=== PATIENT | female | born 1945 | race Caucasian/White ===

== ENCOUNTER 2017-03-16 05:59 | Observation (INO) | payer MEDICARE, OTHER ==
--- NOTE | 2017-03-16 06:14 | ED Physician Documentation ---
History of Present Illness - Stated complaint Stated Complaint: DIZZY - Chief complaint Chief Complaint: Neuro - Additonal information Additional information: hx from pt 72 y/o female approx 1 hr ago (5AM) got up to go to the bathroom and had immense pressure in her head, felt weak all over and off balance but not vertiginous, had burning in her chest and numbness in her left jaw could scarcely walk into the lobby upon arrival and had to be put in a wheelchair no numbness no vision or hearing changes no fever cough NVD today but 5 days ago had milder head pressure and dizziness and diarrhea, that resolved and she was better if not quite her normal self for the intervening days Review of Systems Constitutional: denies: Fever, Chills Throat: denies: Sore throat Cardiac: reports: Chest pain / pressure (burning) Respiratory: denies: Dyspnea GI: denies: Abdominal Pain, Nausea, Vomiting, Diarrhea : denies: Dysuria Neurologic: reports: Generalized weakness, Headache. denies: Focal weakness, Numbness, Difficulty speaking, Altered mental status, Head injury Endocrine: denies: Easy bruising / bleeding Immunocompromised: denies: Immunocompromised PD PAST MEDICAL HISTORY - Past Medical History Cardiovascular: High cholesterol, Angina Neuro: Head injury GI: GERD - Past Surgical History Past Surgical History: Yes General: Cholecystectomy, Appendectomy, Hiatal hernia repair /OVERNIGHT ASSOCIATE: Hysterectomy - Present Medications Home Medications: Ambulatory Orders Medication Instructions Recorded Confirmed Aspirin [Aspir 81] 81 mg PO DAILY 03/08/13 03/16/17 Metoprolol Succinate [Toprol Xl] 50 mg PO BID 03/08/13 03/16/17 Losartan [Cozaar] 50 mg PO DAILY 03/16/17 03/16/17 Losartan [Cozaar] 100 mg PO DAILY PM 03/16/17 03/16/17 raNITIdine [Zantac] 150 mg PO BID 03/16/17 03/16/17 - Allergies Allergies/Adverse Reactions: Allergies Allergy/AdvReac Type Severity Reaction Status Date / Time No Known Drug Allergies Allergy Verified 03/16/17 06:38 - Social History Does the pt smoke?: No Smoking Status: Never smoker Does the pt drink ETOH?: Yes PD ED PE NORMAL - Vitals Vital signs reviewed: Yes - General General: Alert and oriented X 3 - HEENT HEENT: PERRL, EOMI - Neck Neck: Supple, no meningeal sign - Cardiac Cardiac: RRR - Respiratory Respiratory: No respiratory distress, Clear bilaterally - Abdomen Abdomen: Soft, Non tender - Derm Derm: Normal color - Extremities Extremities: No deformity - Neuro Neuro: Alert and oriented X 3, methods study analyst 2-12 intact, No motor deficit, No sensory deficit, Normal speech, Other (NIHSS zero but per triage nurse had an unsteady gait) Results - Vitals Vitals: Vital Signs - 24 hr 03/16/17 03/16/17 03/16/17 06:04 06:16 06:29 Temperature 36.3 C L 36.6 C Heart Rate 79 78 Respiratory 16 16 Rate Blood Pressure 197/98 H 202/108 H Blood Pressure 202/98 H [Right] O2 Saturation 98 97 03/16/17 07:42 Temperature Heart Rate 67 Respiratory 20 Rate Blood Pressure 197/92 H Blood Pressure [Right] O2 Saturation 98 Oxygen O2 Source Room air - EKG (time done) 0630 Rate: Rate (enter#) (79) Rhythm: NSR [place]: Normal Intervals: Normal ND, RBBB Compare to prior EKG: Unchanged from prior EKG (from 2012) - Labs Labs: Laboratory Tests 03/16/17 03/16/17 03/16/17 06:20 06:20 06:20 WBC 6.9 RBC 5.52 H Hgb 16.4 H Hct 47.2 H MCV 85.6 MCH 29.7 MCHC 34.8 RDW 12.7 Plt Count 222 MPV 8.0 Neut # 4.0 Lymph # 1.9 [place] # 0.4 Eos # 0.5 Baso # 0.1 Absolute Nucleated RBC 0.00 Nucleated RBCs 0.0 Sodium 139 Potassium 3.9 Chloride 106 Carbon Dioxide 23 Anion Gap 10.0 BUN 19 Creatinine 1.0 Estimated GFR (MDRD) 54 L Glucose 112 H Calcium 10.1 Troponin I < 0.04 Urine Color Urine Clarity Urine pH Ur Specific [place] Urine Protein Urine Glucose (UA) Urine Ketones Urine Occult Blood Urine Nitrite Urine Bilirubin Urine Urobilinogen Ur Leukocyte Esterase Ur Microscopic Review Urine Culture Comments 03/16/17 07:30 WBC RBC Hgb Hct MCV MCH MCHC RDW Plt Count MPV Neut # Lymph # [place] # Eos # Baso # Absolute Nucleated RBC Nucleated RBCs Sodium Potassium Chloride Carbon Dioxide Anion Gap BUN Creatinine Estimated GFR (MDRD) Glucose Calcium Troponin I Urine Color YELLOW Urine Clarity CLEAR Urine pH 6.0 Ur Specific [place] 1.010 Urine Protein NEGATIVE Urine Glucose (UA) NEGATIVE Urine Ketones NEGATIVE Urine Occult Blood NEGATIVE Urine Nitrite NEGATIVE Urine Bilirubin NEGATIVE Urine Urobilinogen 0.2 (NORMAL) Ur Leukocyte Esterase NEGATIVE Ur Microscopic Review NOT INDICATED Urine Culture Comments NOT INDICATED - Rads (name of study) CTH Radiology: See rad report (generaliuzed age related atropht, no acute) CXR Radiology: See rad report (no acute) PD MEDICAL DECISION MAKING - ED course ED course: head pressure more than pain, was intense but subsided as BP came down ataxia was present when pt awoke at 5 AM today, she had some milder sx several days ago, improved for a few days, then severe when she awoke this AM to go to the bathroom also pt sx are improving somewhat in the ER so do not feel pt is a TPA candidate CTH neg for bleed MRI would be much better for evaluating posterior will admit for further work up and management such as MRI MRA echo etc also had chest pain and jaw numbness - EKG unchanged, trop # 1 neg, discomfort has subsided d/w hospitalist at [address] in obs Departure - Departure Disposition: ED Place in Observation Clinical Impression: Ataxia Headache Qualifiers: Headache type: unspecified Headache chronicity pattern: acute headache Intractability: not intractable Qualified Code(s): R51 - Headache Chest pain Qualifiers: Chest pain type: unspecified Qualified Code(s): R07.9 - Chest pain, unspecified Hypertension Qualifiers: Hypertension type: unspecified Qualified Code(s): I10 - Essential (primary) hypertension
[2017-03-16 06:30] LABS: BASOPHILS # (AUTO) 0.1 10^3/uL (0.0-0.1); BASOPHILS % (AUTO) 0.8 %; EOSINOPHILS # (AUTO) 0.5 10^3/uL (0.0-0.7); HCT - HEMATOCRIT 47.2 % (37.0-47.0); HGB - HEMOGLOBIN 16.4 g/dL (12.0-16.0); LYMPHOCYTES # (AUTO) 1.9 10^3/uL (1.5-3.5); LYMPHOCYTES % (AUTO) 27.3 %; MEAN CORPUSCULAR HEMOGLOBIN 29.7 pg (27.0-31.0); MEAN CORPUSCULAR HGB CONC 34.8 g/dL (32.0-36.0); MEAN CORPUSCULAR VOLUME 85.6 fL (81.0-99.0); MONOCYTES # (AUTO) 0.4 10^3/uL (0.0-1.0); MONOCYTES % (AUTO) 6.2 %; NEUTROPHILS % (AUTO) 57.7 %; RED BLOOD COUNT 5.52 10^6/uL (4.20-5.40); RED CELL DISTRIBUTION WIDTH 12.7 % (12.0-15.0); UNCORRECTED WHITE BLOOD COUNT 6.9 x10^3/uL; WHITE BLOOD COUNT 6.9 x10^3/uL (4.8-10.8)
[2017-03-16 06:40] LABS: CALCIUM 10.1 mg/dL (8.5-10.3); POTASSIUM 3.9 mmol/L (3.5-5.0)
--- NOTE | 2017-03-16 07:00 | XRAY Preliminary Report ---
Exam: XR Chest 1 View IMPRESSION: 1. No acute abnormalities seen in the chest. [facility] SITE ID: [id number]
--- NOTE | 2017-03-16 07:03 | XRAY Report ---
EXAM: CHEST RADIOGRAPHY EXAM DATE: 03/16/2017 06:22 AM. CLINICAL HISTORY: Chest pain. COMPARISON: None. TECHNIQUE: 1 view. FINDINGS: Lungs/Pleura: No alveolar consolidation or pleural effusion seen. No pneumothorax. Mediastinum: Within exam limitations, cardiomediastinal contour is normal. Other: None. IMPRESSION: 1. No acute abnormalities seen in the chest. [facility] Referring Provider Line: [phone] SITE ID: [id number]
--- NOTE | 2017-03-16 07:07 | CT Preliminary Report ---
Exam: CT Head W/O IMPRESSION: Generalized age-related cortical atrophic changes without evidence of acute intracranial abnormality. [facility] SITE ID: [id number]
--- NOTE | 2017-03-16 07:09 | CT Report ---
EXAM: CT HEAD EXAM DATE: 03/16/2017 06:55 AM. CLINICAL HISTORY: Head pressure ataxia. COMPARISON: None. TECHNIQUE: Multiaxial CT images were obtained from the foramen magnum to the vertex. IV contrast: Non e. Reformats: Coronal. In accordance with CT protocol optimization, one or more of the following dose reduction techniques w ere utilized for this exam: automated exposure control, adjustment of mA and/or KV based on patient s ize, or use of iterative reconstructive technique. FINDINGS: Parenchyma: No intraparenchymal hemorrhage. No evidence of mass, midline shift, or CT findings of acu te infarction. Estevez-white differentiation is distinct. Extraaxial Spaces: Normal for age. No subdural or epidural collections identified. Ventricles: The ventricles and cortical sulci are enlarged, consistent with age-related tissue loss. Sinuses: Imaged paranasal sinuses, orbits, and mastoids show no significant abnormality. Bones: No evidence of fracture or calvarial defect. Other: Diffuse chronic microangiopathic white matter changes are evident. IMPRESSION: Generalized age-related cortical atrophic changes without evidence of acute intracranial abnormality. [facility] Referring Provider Line: [phone] SITE ID: [id number]
[2017-03-16] MEDS ORDERED: METOPROLOL SUCCINATE 50 MG TABLET PO STA (07:14)
[2017-03-16] MEDS ORDERED: MECLIZINE 12.5 MG TABLET PO STA (07:23)
[2017-03-16] MEDS ORDERED: ACETAMINOPHEN 1,000 MG/100 ML 100 ML IV STA (07:30)
[2017-03-16] MEDS ORDERED: MECLIZINE 12.5 MG TABLET PO ONE (07:42)
[2017-03-16] MEDS ORDERED: ACETAMINOPHEN 1,000 MG/100 ML 100 ML IV ONE (07:42)
[2017-03-16 07:45] LABS: BILIRUBIN,URINE NEGATIVE (NEGATIVE)
[2017-03-16] MEDS ORDERED: ONDANSETRON ODT 4 MG TABLET TL PRN (08:02)
[2017-03-16] MEDS ORDERED: SODIUM CHLORIDE FLUSH 0.9% 10 ML SYRINGE IVP PRN (08:02)
[2017-03-16] MEDS ORDERED: ACETAMINOPHEN 325 MG TABLET PO PRN (08:02)
[2017-03-16 08:03] LABS: UA CHARGE (STRIP ONLY) YES; UR CULTURE IF IND NOT INDICATED
[2017-03-16] MEDS ORDERED: LOSARTAN 50 MG TABLET PO SCH ×2 (09:00→21:00)
[2017-03-16] MEDS ORDERED: PATIENT OWN MED PO SCH (09:00)
[2017-03-16] MEDS ORDERED: ASPIRIN CHEW 81 MG TABLET PO SCH (09:00)
[2017-03-16] MEDS: POLYETHYLENE GLYCOL 3350 17 GM PACKET PO SCH (11:03)
[2017-03-16] MEDS: MULTIVITAMIN TABLET PO SCH (11:03)
[2017-03-16] MEDS: ENOXAPARIN 40 MG/0.4 ML SYRINGE SUBQ SCH (11:03)
[2017-03-16] MEDS: SODIUM CHLORIDE 0.9% 1,000 ML IV SCH ×2 (11:04→23:45)
--- NOTE | 2017-03-16 12:11 | HISTORY & PHYSICAL EXAMINATION ---
Chief Complaint - Chief Complaint Chief Complaint: dizziness and hypertension History of Present Illness - Admitted From Admitted From:: ER - History Obtained From Records Reviewed: yes History obtained from: patient and medical records Exam Limitations: none - History of Present Illness HPI Comment/Other: Patient is a 72 year old female who presented to the ER with complaint of dizziness this morning while in the bathroom. She was sick last week with what she describes as "flu like symptoms" and had a headache that started this morning. She describes the headache as " a heavy brick" on the top of her head . She states she lost her balance this morning and decided to come to the ER to be evaluated. She denies chest pain or shortness of breath. No nausea or vomiting. She did have some jaw numbness but this has resolved. She was hypertensive when she came into the ER but she states this has been chronic for awhile and her travel journalist in [place] has been trying to get it down. She states she also had a friend who was sick last week and may have gotten ill from her. She has no pain. No diarrhea or constipation. She admits to having dizziness for almost a week but getting worse this morning. She has a history of cardiac problems including a alcohol ablation for hypertrophic cardiomyopathy. ER provider was concerned for a possible CVA so patient was admitted for workup for possible CVA. Her symptoms now are resolving and are now moderate and headache improving. She received tylenol in the ER . She received betablocker and losartan in the ER for the blood pressure and is now 160 systolic. Review of Systems - Cardiovascular Cariovascular: reports: Lightheadedness - Neurological Neurological: reports: Headache, Dizziness, Numbness (jaw) - All Other Systems All Other Systems: reports: Reviewed and negative History - Past Medical History Cardiovascular: reports: High cholesterol, Angina, Other (hypertrophic cardiomyopathy) Respiratory: reports: None Neuro: reports: None, Head injury GI: reports: GERD HYDROGEOLOGY PROFESSOR: reports: None : reports: None HEENT: reports: None Psych: reports: None Musculoskeletal: reports: None Derm: reports: None MRSA Hx?: No - Past Surgical History General: reports: Cholecystectomy, Appendectomy, Hiatal hernia repair /HYDROGEOLOGY PROFESSOR: reports: Hysterectomy Cardiovascular: reports: Other (alcohol ablation of the heart) - Family & Social History Family History: Mother: , Father: Living arrangement: At home Living Situation: Alone - Substance History Use: Uses substance without health or social issues: NONE Abuse: Recurrent use of substance despite neg consequences: NONE Dependence: Experiences withdrawal or developed tolerances: NONE - POLST Patient has POLST: No POLST Status: Full Code Meds/Allgy - Home Medications Home Medications: Ambulatory Orders Medication Instructions Recorded Confirmed Aspirin [Aspir 81] 81 mg PO DAILY 03/08/13 03/16/17 Metoprolol Succinate [Toprol Xl] 50 mg PO BID 03/08/13 03/16/17 Losartan [Cozaar] 50 mg PO DAILY 03/16/17 03/16/17 Losartan [Cozaar] 100 mg PO DAILY PM 03/16/17 03/16/17 raNITIdine [Zantac] 150 mg PO BID 03/16/17 03/16/17 - Allergies Allergies/Adverse Reactions: Allergies Allergy/AdvReac Type Severity Reaction Status Date / Time No Known Drug Allergies Allergy Verified 03/16/17 06:38 Exam - Vital Signs Reviewed Vital Signs: Yes Vital Signs: Vital Signs x48h Temp Pulse Resp BP Pulse Ox 03/16/17 10:15 36.6 C 61 12 164/78 H 96 03/16/17 08:59 36.6 C 62 7 L 208/90 H 95 - Physical Exam General Appearance: positive: No acute distress, Alert Eyes Bilateral: positive: Normal inspection, PERRL, EOMI ENT: positive: ENT inspection nml, Pharynx nml, No signs of dehydration Neck: positive: Nml inspection, Thyroid nml, No JVD, Trachea midline Respiratory: positive: Chest non-tender, No respiratory distress, Breath sounds nml Cardiovascular: positive: Regular rate & rhythm, No murmur, No gallop Peripheral Pulses: positive: 2+ Abdomen: positive: Non-tender, No organomegaly, Nml bowel sounds, No distention , Tenderness Skin: positive: Color nml, No rash, Warm, Dry Extremities: positive: Non-tender, Full ROM, Nml appearance, No pedal edema. negative: Pedal edema, Calf tenderness Neurologic/Psychiatric: positive: Oriented x3, CN's nml (2-12), Motor nml, Sensation nml, Mood/affect nml. negative: Facial droop, Slurred/abnml speech Conclusion/Plan - Problem List (1) Dizziness of unknown cause Conclusion/Plan: acute with ataxia. fall precautions and stroke protocol with MRA/MRI and carotid doppler. aspirin has been given. (2) Ataxia Conclusion/Plan: acute secondary to acute hypertensive episode, unspecified. Patient symptoms are improving and she is not as dizzy since her blood pressure has decreased. continue on home dosage of blood pressure and will give nitropaste and clonidine for urgency. continue to monitor on telemetry. physical therapy assessment ordered and on fall precautions (3) Headache, acute Conclusion/Plan: acute secondary to elevated blood pressure upon waking. will get a carotid doppler and monitor blood pressures. continue on home dosage. CT of head was negative. MRI/MRA to rule out possible CVA. Echo ordered for elevation of blood pressure and jaw numbness. tylenol for pain and norco oral for moderate to severe headache pain. IVF for possible dehydration Qualifiers: Headache type: unspecified (4) Hypertension, malignant Conclusion/Plan: acute on chronic. patient has beeen having difficulty with getting blood pressure within goal. She was given betablocker and cozaar in the ER with some relief. will continue on home medications and Echo has been ordered to rule out possible pathophysiological cause. continue on low sodium diet. nitro and clonidine ordered for crisis. - Lab Results Lab results reviewed: Yes Fish Bones: 03/16/17 06:20 03/16/17 06:20 Other Lab Results: Abnormal Lab Results 03/16/17 03/16/17 06:20 06:20 RBC 5.52 10^6/uL H 10^6/uL (4.20-5.40) Hgb 16.4 g/dL H g/dL (12.0-16.0) Hct 47.2 % H % (37.0-47.0) Estimated GFR (MDRD) 54 L (>89) Glucose 112 mg/dL H mg/dL (70-100) - Diagnostic Imaging Results Diagnostic Imaging Results: positive: Prelim report reviewed Diagnostic Imaging Results Comments: CT of head with no acute process. pending carotid doppler, echo and MRi/MRA - EKG Results EKG Interpreted Independently: Yes EKG Comparison: Unchanged from prior EKG Issues/Core Measures - Anticipated LOS Anticipated Stay Length: Less than 2 midnights - Issues Hospital Issues and Management Plan: Patient will require less than 24 hour admit for diagnostics and workup for possible CVA. She is high risk for worsening co morbid conditions and will need additional diagnostics and medications IV with high risk for toxicity. Time spent of admission was 45 minutes for planning, assessment, and education - DVT/VTE - Prophylaxis VTE/DVT Device ordered at admit?: Yes VTE/DVT Prophylaxis med ordered at admit?: Yes
[2017-03-16] MEDS: SODIUM CHLORIDE FLUSH 0.9% 10 ML SYRINGE IVP SCH ×2 (12:12→20:15)
[2017-03-16] MEDS: ASPIRIN EC 81 MG TABLET PO SCH (12:30)
--- NOTE | 2017-03-16 15:45 | Ultrasound Report ---
CAROTID DUPLEX: 03/16/2017 CLINICAL INDICATION: CVA. TECHNIQUE: Real-time sonographic vascular imaging was performed by the support technician through the carotid arteries utilizing both color-flow and Doppler spectral analysis. Multiple merchandiser retail representative static images were saved for review. Vessel PSV cm/sec 2D Plaque Estimate % EDV cm/sec ICA/CCA PSV % Stenosis RCCA Prox 60 -- RCCA Dist 66 15 -- RECA 87 -- RT BULB 66 -- 15 1.0 KEISHA Prox 80 -- 26 1.2 KEISHA Mid 84 -- 29 1.2 KEISHA Dist 86 -- 27 1.3 RVA 48 RVA flow direction: Antegrade. Vessel PSV cm/sec 2D Plaque Estimate % EDV cm/sec ICA/CCA PSV % Stenosis LCCA Prox 71 -- LCCA Dist 75 17 -- LECA 81 -- LFT BULB 58 -- 14 0.77 LICA Prox 60 -- 16 0.80 LICA Mid 76 -- 15 1.01 LICA Dist 73 -- 25 0.97 LVA 77 LVA flow direction: Antegrade. Velocity criteria are extrapolated from diameter data as defined by the Society of Radiologists in Ultrasound Consensus Conference Radiology 2003; 229; 340-346. Degree of Stenosis % ICA PSV cm/sec Plaque Estimate % ICA/CCA RSV Ratio ICA EDV cm/sec Normal < 125 None < 2.0 < 40 <50 < 125 < 50 < 2.0 < 40 50-69 125 - 130 >/= 50 2.0 - 4.0 40 - 100 >/= 70 but less than near occlusion > 230 >/= 50 > 4.0 > 100 Near occlusion High, low, or undetectable Visible lumen Variable Variable Total occlusion Undetectable No detectable lumen Not applicable Not applicable FINDINGS: RIGHT: There is mild plaquing in the right carotid bifurcation, without evidence of a focal hemodynamically significant carotid stenosis. LEFT: There is mild plaquing in the left carotid bifurcation, without evidence of a focal hemodynamically significant carotid stenosis. The vertebral arteries demonstrate antegrade flow bilaterally. IMPRESSION: MILD PLAQUING BILATERALLY, WITHOUT EVIDENCE OF A FOCAL HEMODYNAMICALLY SIGNIFICANT CAROTID STENOSIS. MTDD
[2017-03-16] MEDS ORDERED: GADOBUTROL 7.5 MMOL/7.5 ML VIAL IVP ONE (17:12)
--- NOTE | 2017-03-16 17:59 | MRI Report ---
EXAM: MRI BRAIN WITHOUT CONTRAST EXAM DATE: 03/16/2017 05:48 PM. CLINICAL HISTORY: 72-year-old woman with headache and hypertension and possible stroke. COMPARISON: Noncontrast head CT done earlier the same day. TECHNIQUE: Multiplanar, multisequence T1-weighted and fluid-sensitive MR sequences of the brain were performed. Sequences optimized for routine evaluation. Other: None. IV Contrast: None. FINDINGS: Parenchyma: No evidence of acute infarct on diffusion weighted sequence. The parenchyma is normal exc ept for several small scattered foci of nonspecific FLAIR hyperintensity in the deep cerebral white m atter, less than commonly seen in this age group. No evidence of prior hemorrhage on susceptibility w eighted sequence. Pituitary: Unremarkable. Ventricles and Extra-axial Spaces: Ventricles are symmetric and normal in size for age. Extra-axial s paces are unremarkable. Orbits: Unremarkable. Sinuses: Paranasal sinuses and mastoid air cells are clear. Major Vascular Flow Voids: Intact. IMPRESSION: 1. No acute intracranial abnormality. Specifically, no evidence of acute infarct, hemorrhage, or mass lesion. [facility] Referring Provider Line: [phone] SITE ID: [id number]
--- NOTE | 2017-03-16 18:01 | MRI Report ---
EXAM MRA BRAIN EXAM DATE: 03/16/2017 05:48 PM. CLINICAL HISTORY: 72-year-old woman with headache and hypertension and possible stroke. COMPARISON: None. TECHNIQUE: Multiplanar, multisequence MRA sequences of the brain were performed. Other: None. Post-pr ocessing: Multiplanar 3D MIP reconstructions. IV Contrast: None. FINDINGS: RIGHT: Visualized Internal Carotid Artery: Patent without significant stenosis. No evidence of aneurysm. Anterior Cerebral Artery: Patent without significant stenosis or aneurysm. Middle Cerebral Artery: Patent without significant stenosis or aneurysm. Posterior Cerebral Artery: Patent without significant stenosis or aneurysm. Posterior Communicating Artery: Not well seen. Visualized Vertebral Artery: Patent without significant stenosis. No evidence of dissection or aneury sm. LEFT: Visualized Internal Carotid Artery: Patent without significant stenosis. No evidence of aneurysm. Anterior Cerebral Artery: Patent without significant stenosis or aneurysm. Middle Cerebral Artery: Patent without significant stenosis or aneurysm. Posterior Cerebral Artery: Patent without significant stenosis or aneurysm. Posterior Communicating Artery: Not well seen. Visualized Vertebral Artery: Patent without significant stenosis. No evidence of dissection or aneury sm. CENTRAL: Anterior Communicating Artery: Patent. No aneurysm. Basilar: Patent without significant stenosis, dissection, or aneurysm. IMPRESSION: 1. Normal MRA of the head. No significant vascular stenosis or aneurysm. [facility] Referring Provider Line: [phone] SITE ID: [id number]
--- NOTE | 2017-03-16 18:03 | MRI Report ---
EXAM: MR ANGIOGRAM NECK EXAM DATE: 03/16/2017 05:48 PM. CLINICAL HISTORY: 72-year-old woman with headache and hypertension and possible stroke. COMPARISON: None. TECHNIQUE: Multiplanar, multisequence MRA sequences of the neck were performed. Other: None. Post-pro cessing: Multiplanar 3D MIP reconstructions. IV Contrast: 5 cc Gadavist. Evaluation of arterial sten osis is based on a NASCET method of measurement. FINDINGS: RIGHT Common Carotid: Patent. No dissection or significant stenosis. Internal Carotid: Patent. No dissection or significant stenosis. External Carotid: Patent. No dissection or significant stenosis. Vertebral: Patent. No dissection or significant stenosis. LEFT Common Carotid: Patent. No dissection or significant stenosis. Internal Carotid: Patent. No dissection or significant stenosis. External Carotid: Patent. No dissection or significant stenosis. Vertebral: Patent. No dissection or significant stenosis. Other: Limited evaluation of the neck soft tissues is unremarkable. IMPRESSION: 1. Normal MRA of the neck. No significant vascular stenosis or dissection. [facility] Referring Provider Line: [phone] SITE ID: [id number]
[2017-03-16] MEDS ORDERED: MAGNESIUM SULFATE 2 GRAM 50 ML IV SCH (19:46)
[2017-03-16] MEDS ORDERED: ACETAMINOPHEN/CODEINE 300 MG/30 MG TABLET PO PRN (19:48)
[2017-03-16] MEDS ORDERED: NITROGLYCERIN 2% PASTE TOP SCH (20:00)
[2017-03-16] MEDS: METOPROLOL SUCCINATE 25 MG TABLET PO SCH (20:14)
[2017-03-17 04:21] VITALS: BP 129/67
[2017-03-17 05:46] LABS: BASOPHILS # (AUTO) 0.1 10^3/uL (0.0-0.1); BASOPHILS % (AUTO) 0.9 %; EOSINOPHILS # (AUTO) 0.4 10^3/uL (0.0-0.7); EOSINOPHILS % (AUTO) 7.2 %; HCT - HEMATOCRIT 41.2 % (37.0-47.0); HGB - HEMOGLOBIN 14.4 g/dL (12.0-16.0); LYMPHOCYTES # (AUTO) 2.3 10^3/uL (1.5-3.5); LYMPHOCYTES % (AUTO) 38.6 %; MEAN CORPUSCULAR HEMOGLOBIN 30.1 pg (27.0-31.0); MEAN PLATELET VOLUME 7.7 fL (7.9-10.8); MONOCYTES # (AUTO) 0.4 10^3/uL (0.0-1.0); MONOCYTES % (AUTO) 6.9 %; NEUTROPHILS # (AUTO) 2.7 10^3/uL (1.5-6.6); NEUTROPHILS % (AUTO) 46.4 %; RED BLOOD COUNT 4.79 10^6/uL (4.20-5.40); RED CELL DISTRIBUTION WIDTH 12.8 % (12.0-15.0); UNCORRECTED WHITE BLOOD COUNT 5.9 x10^3/uL; WHITE BLOOD COUNT 5.9 x10^3/uL (4.8-10.8)
[2017-03-17 05:48] LABS: INR 1.1 (0.8-1.2); PT - PROTHROMBIN TIME 12.6 secs (9.9-12.6)
[2017-03-17 05:55] LABS: PARTIAL THROMBOPLASTIN TIME 29.3 secs (24.9-33.3)
[2017-03-17 05:58] LABS: ALBUMIN/GLOBULIN RATIO 1.6 (1.0-2.2); BILIRUBIN,TOTAL 1.3 mg/dL (0.2-1.0); CALCIUM 9.4 mg/dL (8.5-10.3); POTASSIUM 4.7 mmol/L (3.5-5.0); TOTAL PROTEIN 5.9 g/dL (6.7-8.2)
[2017-03-17 06:06] LABS: CHOL/HDL RATIO 7.5 (<4.4); CHOLESTEROL 231 mg/dL; HDL CHOLESTEROL 31 mg/dL; LDL/HDL RATIO 5.2 (<4.4); TRIGLYCERIDES 189 mg/dL; VLDL CHOLESTEROL 38 mg/dL
[2017-03-17] MEDS: SODIUM CHLORIDE FLUSH 0.9% 10 ML SYRINGE IVP SCH (06:16)
--- NOTE | 2017-03-17 07:32 | Discharge Plan ---
Discharge Plan Disposition: 01 Home, Self Care Condition: Good Prescriptions: Ubidecarenone [Coenzyme Q-10] 200 mg PO BID #60 capsule Melatonin/Herbal Complex #184 [Melatonin + l-Theanine Softgel] 6 mg PO QPM #60 capsule Niacin 250 mg PO BID #60 capsule.er [place]-3S/Dha/Epa/Fish Oil [[place]-3 Fish Oil 1,200 mg Sfgl] 1 each PO BID #60 capsule Multivitamin [Theragran] 1 tab PO DAILYWM #30 tablet Cholecalciferol [Vitamin D3] 5,000 unit PO BID #60 capsule Diet: Cardiac Activity Restrictions: No Restrictions Shower Restrictions: No Driving Restrictions: No Weight Bearing: Full Weight Instruction Topics: Cholesterol High Assess Risk, Fitness Walking, Foods Heart Healthy Additional Instructions or Follow Up instructions: Please continue to take home medications as prescribed. You need to take an aspirin daily. You have been prescribed medications for your cholesterol and blood pressure. You need to eat a heart healthy diet. Avoid soda and drink plenty of water and avoid refined sugar. Get plenty of rest at night. You have been given Melatonin to help with sleep. Get plenty of exercise during the day. Walking is a great way to get you daily exercise and decrease your cholesterol. Return to the ER if you have symptoms of chest pain or shortness of breath. Please see your PCP within one week of discharge. Websites that can help with good health: [employer]ome Batista DNP- [email or web address] No Smoking: If you smoke, Please STOP! Call for help.
--- NOTE | 2017-03-17 07:50 | DISCHARGE SUMMARY ---
Discharge Summary Admit Date: 03/16/17 Discharge Date: 03/17/17 Discharging Provider: Chantell Batista APRN Code Status: Attempt Resuscitation Condition at Discharge: Good Discharge Disposition: 01 Home, Self Care Discharge Facility Name: home - DIAGNOSES Admission Diagnoses: 1. Acute frontal headache with hypertensive urgency and possible CVA 2. Hyperlipidemia, unspecified 3. History of hypertrophic cardiomyopathy 4. Mild dehydration Discharge Diagnoses with Status of Each Condition: 1. Acute frontal headache with hypertensive urgency 2. Mixed hyperlipidemia 3. Secondary hypertension with hypertrophic cardiomyopathy 4. Mild dehydration - HPI History of Present Illness: Patient is a 72 year old female who presented to the ER with complaint of dizziness this morning while in the bathroom. She was sick last week with what she describes as "flu like symptoms" and had a headache that started this morning. She describes the headache as " a heavy brick" on the top of her head . She states she lost her balance this morning and decided to come to the ER to be evaluated. She denies chest pain or shortness of breath. No nausea or vomiting. She did have some jaw numbness but this has resolved. She was hypertensive when she came into the ER but she states this has been chronic for awhile and her manager [employer] in [place] has been trying to get it down. She states she also had a friend who was sick last week and may have gotten ill from her. She has no pain. No diarrhea or constipation. She admits to having dizziness for almost a week but getting worse this morning. She has a history of cardiac problems including a alcohol ablation for hypertrophic cardiomyopathy. ER provider was concerned for a possible CVA so patient was admitted for workup for possible CVA. Her symptoms now are resolving and are now moderate and headache improving. She received tylenol in the ER . She received betablocker and losartan in the ER for the blood pressure and is now 160 systoli - CONSULTS | PROCEDURES Consultations: none Procedures: MRI/MRA: Normal MRI/MRA with no significan vascular stenosis or dissection. No acute intracranial abnormality. Echocardiogram: Grade 1 diastolic dysfunction with EF of 70% CT of head: negative for acute bleed or infarct - HOSPITAL COURSE Hospital Course: Patient is a 72 year old female who presented to the ER with complaint of dizziness this morning while in the bathroom. She was sick last week with what she describes as "flu like symptoms" and had a headache that started this morning. She describes the headache as " a heavy brick" on the top of her head . She states she lost her balance this morning and decided to come to the ER to be evaluated. She denies chest pain or shortness of breath. No nausea or vomiting. She did have some jaw numbness but this has resolved. She was hypertensive when she came into the ER but she states this has been chronic for awhile and her manager [employer] in [place] has been trying to get it down. She states she also had a friend who was sick last week and may have gotten ill from her. She has no pain. No diarrhea or constipation. She admits to having dizziness for almost a week but getting worse this morning. She has a history of cardiac problems including a alcohol ablation for hypertrophic cardiomyopathy. ER provider was concerned for a possible CVA so patient was admitted for workup for possible CVA. Her symptoms now are resolving and are now moderate and headache improving. She received tylenol in the ER . She received betablocker and losartan in the ER for the blood pressure and is now 160 systoli - Problem List (1) Dizziness of unknown cause Conclusion/Plan: acute with ataxia. she was on fall precautions and stroke protocol medicated with aspirin and continued on betab tri with MRA/MRI and carotid doppler. She was given IVF NS for gentle hydration (2) Ataxia Conclusion/Plan: acute secondary to acute hypertensive episode, unspecified. Patient symptoms are improving and she is not as dizzy since her blood pressure has decreased. She continued on home dosage of blood pressure and was given nitropaste and clonidine for hypertensive urgency. continued to monitor on telemetry. physical therapy assessment was preformed and patient was at baseline at discharge (3) Headache, acute Conclusion/Plan: acute secondary to elevated blood pressure upon waking. will get a carotid doppler and monitor blood pressures. continue on home dosage. CT of head was negative. MRI/MRA to rule out possible CVA. Echo was ordered for elevation of blood pressure and jaw numbness. Echo showed EF of 70-75%. tylenol for pain and norco oral for moderate to severe headache pain and IVF f for mild dehydration were given (4) Hypertension, malignant acute on chronic. patient had been having difficulty with getting blood pressure within goal. She was given beta tri and cozaar while in the ER with some relief. she continued on her usual home medications for headache and Echo was ordered to rule out for cardiac etiology. She continued on a low sodium diet. nitro and clonidine were ordered for hypertensive urgency. She was on Lovenox and SCD for DVT prophylaxis - ALLERGIES Allergies/Adverse Reactions: Allergies Allergy/AdvReac Type Severity Reaction Status Date / Time No Known Drug Allergies Allergy Verified 03/16/17 06:38 - MEDICATIONS Home Medications: Ambulatory Orders Medication Instructions Recorded Confirmed Aspirin [Aspir 81] 81 mg PO DAILY 03/08/13 03/16/17 Metoprolol Succinate [Toprol Xl] 50 mg PO BID 03/08/13 03/16/17 Losartan [Cozaar] 50 mg PO DAILY 03/16/17 03/16/17 Losartan [Cozaar] 100 mg PO DAILY PM 03/16/17 03/16/17 Cholecalciferol [Vitamin D3] 5,000 unit PO BID #60 capsule 03/17/17 Melatonin/Herbal Complex #184 6 mg PO QPM #60 capsule 03/17/17 [Melatonin + l-Theanine Softgel] Multivitamin [Theragran] 1 tab PO DAILYWM #30 tablet 03/17/17 Niacin 250 mg PO BID #60 capsule.er 03/17/17 Fannin-3S/Dha/Epa/Fish Oil [Fannin-3 1 each PO BID #60 capsule 03/17/17 Fish Oil 1,200 mg Sfgl] Ubidecarenone [Coenzyme Q-10] 200 mg PO BID #60 capsule 03/17/17 - PHYSICAL EXAM AT DISCHARGE General Appearance: positive: No acute distress, Alert Eyes Bilateral: positive: Normal inspection, PERRL, EOMI ENT: positive: ENT inspection nml, Pharynx nml, No signs of dehydration Neck: positive: Nml inspection, Thyroid nml, No JVD, Trachea midline Respiratory: positive: Chest non-tender, No respiratory distress, Breath sounds nml Cardiovascular: positive: Regular rate & rhythm, No murmur, No gallop. negative : JVD present Peripheral Pulses: positive: 2+ Abdomen: positive: Non-tender, No organomegaly, Nml bowel sounds, No distention. negative: Guarding, Rebound Back: positive: Nml inspection Skin: positive: Color nml, No rash, Warm, Dry Extremities: positive: Non-tender, Full ROM, Nml appearance, No pedal edema Neurologic/Psychiatric: positive: Oriented x3, CN's nml (2-12), Motor nml, Sensation nml, Mood/affect nml. negative: Weakness, Facial droop, Slurred/ abnml speech - LABS Result Diagrams: 03/17/17 05:37 03/17/17 05:37 Other Lab Results: Abnormal Lab Results 03/16/17 03/16/17 03/17/17 06:20 06:20 05:37 RBC 5.52 10^6/uL H 10^6/uL (4.20-5.40) Hgb 16.4 g/dL H g/dL (12.0-16.0) Hct 47.2 % H % (37.0-47.0) MPV Estimated GFR (MDRD) 54 L 54 L (>89) (>89) Glucose 112 mg/dL H mg/dL (70-100) Total Bilirubin 1.3 mg/dL H mg/dL (0.2-1.0) Total Protein 5.9 g/dL L g/dL (6.7-8.2) Triglycerides Cholesterol LDL Cholesterol, Calc HDL Cholesterol 03/17/17 03/17/17 05:37 05:37 RBC Hgb Hct MPV 7.7 fL L fL (7.9-10.8) Estimated GFR (MDRD) Glucose Total Bilirubin Total Protein Triglycerides 189 mg/dL H mg/dL ( - 149) Cholesterol 231 mg/dL H mg/dL ( - 199) LDL Cholesterol, Calc 162 mg/dL H mg/dL ( - 129) HDL Cholesterol 31 mg/dL L mg/dL (60 - ) - DIAGNOSTIC IMAGING Diagnostic Imaging Results: Final report reviewed Diagnostic Imaging Results Comments: MRI/MRA: Normal MRI/MRA with no significan vascular stenosis or dissection. No acute intracranial abnormality. Echocardiogram: Grade 1 diastolic dysfunction with EF of 70% CT of head: negative for acute bleed or infarct - FOLLOW UP Follow Up: Patient was instructed to see primary care provider within 2-3 days of discharge regarding cholesterol and headache symptoms See verbally understood all instructions given - TIME SPENT Time Spent in Discharge (Minutes): 50 (for assessment and education at discharge )
[2017-03-17] MEDS: METOPROLOL SUCCINATE 25 MG TABLET PO SCH (08:48)
[2017-03-17] MEDS: ASPIRIN EC 81 MG TABLET PO SCH (08:49)
[2017-03-17] MEDS: MULTIVITAMIN TABLET PO SCH (08:49)
[2017-03-17] MEDS: SODIUM CHLORIDE 0.9% 1,000 ML IV SCH (08:50)
[2017-03-17] MEDS: POLYETHYLENE GLYCOL 3350 17 GM PACKET PO SCH (08:50)
[2017-03-17] MEDS: ENOXAPARIN 40 MG/0.4 ML SYRINGE SUBQ SCH (08:50)
[2017-03-17] MEDS ORDERED: LOSARTAN 50 MG TABLET PO SCH (09:00)
== END 2017-03-17 09:34 | disposition home or self-care (01) ==
LOC: ED 05:59 → OBS 08:02
PROVIDERS: ADMIT Nurse Practitioner; ATTEND Nurse Practitioner
DX: G44.89 Other headache syndrome (principal); I16.0 Hypertensive urgency; I11.9 Hypertensive heart disease without heart failure; E78.2 Mixed hyperlipidemia; E86.0 Dehydration; Z79.899 Other long term (current) drug therapy; K21.9 Gastro-esophageal reflux disease without esophagitis; Z79.82 Long term (current) use of aspirin
CPT/HCPCS: 36415; 70450; 70544; 70549; 70551; 71010; 80048; 80053; 80061; 81003; 83735; 84484; 85025; 85610; 85651; 85730; 86141; 93005; 93306; 93880; 96365; 96367; 96372; 99284; A9270; A9585; G0378; J0131; J1650; 81001; 87086; 99285

== ENCOUNTER 2019-03-04 00:18 | Emergency (ER) | payer MEDICARE, OTHER ==
--- NOTE | 2019-03-04 00:37 | ED Physician Documentation ---
History of Present Illness - Stated complaint Stated Complaint: HIP/TRUNK PX - Chief complaint Chief Complaint: Back Pain - History obtained from History obtained from: Patient, Family - History of Present Illness Timing: Yesterday Pain level now: 10 Improved by: rest Worsened by: movement, weight-bearing/ambulation - Additonal information Additional information: c/o right low back pain radiating down RLE to proximal/mid right thigh. Has had similar, but milder, pain in the past which was diagnosed as sciatica and responded to physical therapy. No recent injury. Review of Systems Constitutional: denies: Fever, Chills, Sweats Cardiac: reports: Reviewed and negative Respiratory: reports: Reviewed and negative GI: reports: Nausea. denies: Abdominal Pain, Abdominal Swelling, Vomiting, Constipation, Diarrhea : denies: Dysuria, Frequency, Unable to Void, Incontinent Skin: denies: Rash Musculoskeletal: reports: Back pain, Pain with weight bearing. denies: Neck pain, Extremity pain, Joint pain, Extremity swelling, Joint swelling Neurologic: denies: Generalized weakness, Focal weakness, Numbness PD PAST MEDICAL HISTORY - Past Medical History Cardiovascular: High cholesterol, Angina, Other (hypertrophic cardiomyopathy) Respiratory: None GI: GERD [employer]: None : None HEENT: None Psych: None Musculoskeletal: None Derm: None - Past Surgical History Past Surgical History: Yes General: Cholecystectomy, Appendectomy, Hiatal hernia repair /[employer]: Hysterectomy Cardiovascular: Other (alcohol ablation of the heart) - Present Medications Home Medications: Ambulatory Orders Medication Instructions Recorded Confirmed Aspirin [Aspir 81] 81 mg PO DAILY 03/08/13 03/16/17 Metoprolol Succinate [Toprol Xl] 50 mg PO BID 03/08/13 03/16/17 Losartan [Cozaar] 25 mg PO BID 03/16/17 03/16/17 Cholecalciferol [Vitamin D3] 5,000 unit PO BID #60 capsule 03/17/17 Multivitamin [Theragran] 1 tab PO DAILYWM #30 tablet 03/17/17 Niacin 250 mg PO BID #60 capsule.er 03/17/17 [place]-3S/Dha/Epa/Fish Oil [C[place]-3 1 each PO BID #60 capsule 03/17/17 Fish Oil 1,200 mg Sfgl] Ciprofloxacin HCl [Cipro] 500 mg PO BID #13 tablet 03/04/19 Oxycodone HCl/Acetaminophen 1 - 2 each PO Q6H PRN #14 tablet 03/04/19 [Percocet 5-325 mg Tablet] Ubidecarenone [Coenzyme Q-10] 200 mg PO DAILY 03/04/19 - Allergies Allergies/Adverse Reactions: Allergies Allergy/AdvReac Type Severity Reaction Status Date / Time Penicillins Allergy Rash Verified 03/04/19 00:23 Sulfa (Sulfonamide Allergy Rash Verified 03/04/19 00:23 Antibiotics) - Social History Does the pt smoke?: No Smoking Status: Never smoker Does the pt drink ETOH?: Yes - POLST Patient has POLST: No POLST Status: Full Code PD ED PE NORMAL - Vitals Vital signs reviewed: Yes - General General: Alert and oriented X 3, No acute distress (NAD at rest, obvious painful discomfort with movement involving lower back or RLE), Well developed/nourished - Neck Neck: Supple, no meningeal sign - Cardiac Cardiac: RRR, No murmur - Respiratory Respiratory: No respiratory distress, Clear bilaterally - Abdomen Abdomen: Soft, Non distended, Other (mild RLQ tenderness to palpation without rebound or guarding) - Back Back: No spinal TTP - Derm Derm: Normal color, Warm and dry, No rash - Extremities Extremities: No deformity, No tenderness to palpate, No edema, No calf tenderness / cord - Neuro Neuro: Alert and oriented X 3, drier tender 2-12 intact, No motor deficit, No sensory deficit PD ED PE EXPANDED - Back Back: Limited ROM (right hip due to pain), CVA TTP right (mild). No: Vertebral tenderness, Soft tissue tenderness - Extremities Extremities: Pedal Pulses Present, Motor intact, Sensory intact, Vascular intact. No: Red warm joint Results - Vitals Vitals: Vital Signs - 24 hr 03/04/19 03/04/19 03/04/19 00:23 01:27 03:45 Temperature 36.7 C 36.8 C 36.7 C Heart Rate 78 77 76 Respiratory 20 14 14 Rate Blood Pressure 157/101 H 138/91 H 114/72 O2 Saturation 100 98 95 Oxygen O2 Source Room air - Labs Labs: Laboratory Tests 03/04/19 03/04/19 03/04/19 01:00 01:00 01:00 WBC 11.3 H RBC 4.89 Hgb 14.8 Hct 41.4 MCV 84.7 MCH 30.3 MCHC 35.7 RDW 12.3 Plt Count 232 MPV 10.1 Neut # (Auto) 7.6 H Lymph # (Auto) 2.4 [place] # (Auto) 0.6 Eos # (Auto) 0.6 Baso # (Auto) 0.1 Absolute Nucleated RBC 0.00 Nucleated RBC % 0.0 ESR 8 Sodium 137 Potassium 3.7 Chloride 104 Carbon Dioxide 21 Anion Gap 12.0 BUN 31 H Creatinine 1.0 Estimated GFR (MDRD) 54 L Glucose 138 H Calcium 9.8 Total Bilirubin 0.7 AST 22 ALT 22 Alkaline Phosphatase 90 Total Protein 7.3 Albumin 4.4 Globulin 2.9 Albumin/Globulin Ratio 1.5 Lipase 36 Urine Color Urine Clarity Urine pH Ur Specific [place] Urine Protein Urine Glucose (UA) Urine Ketones Urine Occult Blood Urine Nitrite Urine Bilirubin Urine Urobilinogen Ur Leukocyte Esterase Urine RBC Urine WBC Ur Squamous Epith Cells Urine Bacteria Ur Microscopic Review Urine Culture Comments 03/04/19 02:00 WBC RBC Hgb Hct MCV MCH MCHC RDW Plt Count MPV Neut # (Auto) Lymph # (Auto) [place] # (Auto) Eos # (Auto) Baso # (Auto) Absolute Nucleated RBC Nucleated RBC % ESR Sodium Potassium Chloride Carbon Dioxide Anion Gap BUN Creatinine Estimated GFR (MDRD) Glucose Calcium Total Bilirubin AST ALT Alkaline Phosphatase Total Protein Albumin Globulin Albumin/Globulin Ratio Lipase Urine Color YELLOW Urine Clarity CLEAR Urine pH 6.0 Ur Specific [place] 1.010 Urine Protein NEGATIVE Urine Glucose (UA) NEGATIVE Urine Ketones NEGATIVE Urine Occult Blood NEGATIVE Urine Nitrite POSITIVE H Urine Bilirubin NEGATIVE Urine Urobilinogen 0.2 (NORMAL) Ur Leukocyte Esterase TRACE H Urine RBC None Seen Urine WBC 6-10 H Ur Squamous Epith Cells RARE Squamous Urine Bacteria Many H Ur Microscopic Review INDICATED Urine Culture Comments INDICATED - Rads (name of study) CT A/P Radiology: Prelim report reviewed, See rad report PD MEDICAL DECISION MAKING - ED course Complexity details: reviewed results, re-evaluated patient, considered differential, d/w patient, d/w family ED course: patient had some improvement with IV morphine 4mg and zofran IV. She subsequently had good symptom control with 2mg morphine IV and toradol IV. Results d/w patient and she was able to slowly ambulate without assistance at time of discharge. Departure - Departure Disposition: 01 Home, Self Care Clinical Impression: Back pain Qualifiers: Back pain location: low back pain Chronicity: acute Back pain laterality: right Sciatica presence: with sciatica Sciatica laterality: sciatica of right side Qualified Code(s): M54.41 - Lumbago with sciatica, right side UTI (urinary tract infection) Qualifiers: Urinary tract infection type: acute cystitis Hematuria presence: with hematuria Qualified Code(s): N30.01 - Acute cystitis with hematuria Condition: Good Instructions: NARCOTIC, Oral, ED Sciatica, ED UTI Cystitis Female Follow-Up: Travis Damon MD [Primary Care Provider] - Prescriptions: Ciprofloxacin HCl [Cipro] 500 mg PO BID #13 tablet Oxycodone HCl/Acetaminophen [Percocet 5-325 mg Tablet] 1 - 2 each PO Q6H PRN #14 tablet PRN Reason: pain Comments: The CT scan did not reveal a cause of your symptoms. As we discussed, there appears to be a cyst on both the right and left side of the pelvis; your primary care provider might order further tests to investigate this finding (such as an ultrasound), but there is no indication that this is causing your discomfort. Discharge Date/Time: 03/04/19 03:46
[2019-03-04] MEDS ORDERED: SODIUM CHLORIDE 0.9% 1,000 ML IV STA (00:52)
[2019-03-04] MEDS ORDERED: MORPHINE 2 MG/ML CARPUJECT IVP STA ×2 (00:52→01:36)
[2019-03-04] MEDS ORDERED: ONDANSETRON 4 MG/2 ML VIAL IVP STA (00:52)
[2019-03-04 01:11] LABS: BASOPHILS # (AUTO) 0.1 10^3/uL (0.0-0.1); BASOPHILS % (AUTO) 0.6 %; EOSINOPHILS # (AUTO) 0.6 10^3/uL (0.0-0.7); EOSINOPHILS % (AUTO) 5.3 %; HGB - HEMOGLOBIN 14.8 g/dL (12.0-16.0); LYMPHOCYTES # (AUTO) 2.4 10^3/uL (1.5-3.5); LYMPHOCYTES % (AUTO) 20.9 %; MEAN CORPUSCULAR HEMOGLOBIN 30.3 pg (27.0-31.0); MEAN CORPUSCULAR HGB CONC 35.7 g/dL (32.0-36.0); MEAN CORPUSCULAR VOLUME 84.7 fL (81.0-99.0); MEAN PLATELET VOLUME 10.1 fL (7.9-10.8); MONOCYTES # (AUTO) 0.6 10^3/uL (0.0-1.0); MONOCYTES % (AUTO) 5.4 %; NEUTROPHILS # (AUTO) 7.6 10^3/uL (1.5-6.6); NEUTROPHILS % (AUTO) 67.4 %; PLT - PLATELET COUNT 232 10^3/uL (130-450); RED BLOOD COUNT 4.89 10^6/uL (4.20-5.40); RED CELL DISTRIBUTION WIDTH 12.3 % (12.0-15.0); WHITE BLOOD COUNT 11.3 x10^3/uL (4.8-10.8)
[2019-03-04] MEDS ORDERED: IOVERSOL 320 100 ML VIAL IVP ONE ×2 (01:23→01:49)
[2019-03-04 01:25] LABS: ALBUMIN 4.4 g/dL (3.2-5.5); ALBUMIN/GLOBULIN RATIO 1.5 (1.0-2.2); BILIRUBIN,TOTAL 0.7 mg/dL (0.2-1.0); CALCIUM 9.8 mg/dL (8.5-10.3); TOTAL PROTEIN 7.3 g/dL (6.7-8.2)
[2019-03-04] MEDS ORDERED: KETOROLAC 30 MG/ML VIAL IVP STA (01:36)
--- NOTE | 2019-03-04 02:09 | CT Report ---
Reason: RLQ pain, right pelvic/hip pain Procedure Date: 03/04/2019 Accession Number: [id number] / [id number] Procedure: CT - Abdomen/Pelvis W CPT Code: FULL RESULT: EXAM: CT ABDOMEN AND PELVIS EXAM DATE: 03/04/2019 01:51 AM. CLINICAL HISTORY: RLQ pain, right pelvic/hip pain. COMPARISONS: None. TECHNIQUE: Routine helical CT imaging was performed through the abdomen and pelvis. IV contrast: OPTI 320 100ML. Enteric contrast: No. Reconstructions: Coronal and sagittal. In accordance with CT protocol optimization, one or more of the following dose reduction techniques were utilized for this exam: automated exposure control, adjustment of mA and/or KV based on patient size, or use of iterative reconstructive technique. FINDINGS: Lung Bases: Moderate hiatal hernia. Dependent atelectasis. Liver: Normal. No masses. Gallbladder/Bile Ducts: Postoperative changes of cholecystectomy. No biliary dilatation. Spleen: Normal. Pancreas: Normal. Adrenal Glands: Normal. Kidneys: Right extrarenal pelvis. No hydronephrosis or nephrolithiasis. Peritoneal Cavity/Bowel: Colonic diverticulosis, without CT evidence of diverticulitis. No bowel obstruction or perforation. No abdominal adenopathy. No ascites. Pelvic Organs: Postoperative changes of hysterectomy. Bilateral adnexal cystic lesions, measuring 4.2 x 2.7 cm on the right and 4.1 x 2.8 cm on the left, likely ovarian in origin. No pelvic free fluid or adenopathy. Vasculature: No aneurysms or other significant abnormality. Bones: Degenerative changes. Other: None. IMPRESSION: Bilateral cystic adnexal lesions, likely ovarian in origin. Consider pelvic ultrasound for further characterization. No definite etiology for patient's right lower quadrant pain. No bowel obstruction or perforation. Diverticulosis, without CT evidence of diverticulitis. RADIA
[2019-03-04 02:11] LABS: BILIRUBIN,URINE NEGATIVE (NEGATIVE); GLUCOSE, URINE (UA) NEGATIVE (NEGATIVE); KETONES,URINE (UA) NEGATIVE (NEGATIVE); LEUKOCYTE ESTERASE, URINE TRACE (NEGATIVE); NITRITE,URINE POSITIVE (NEGATIVE); OCCULT BLOOD,URINE NEGATIVE (NEGATIVE); PROTEIN,URINE NEGATIVE (NEGATIVE); UROBILINOGEN,URINE 0.2 (NORMAL) E.U./dL (NORMAL)
[2019-03-04 02:19] LABS: BACTERIA,URINE Many /HPF (None Seen); CLARITY,URINE CLEAR (CLEAR); RBC,URINE None Seen /HPF (0-5); SQUAMOUS EPITHELIAL CELL,UR RARE Squamous (<= Few)
[2019-03-04] MEDS ORDERED: oxyCODONE/ACET 5/325 Prepack 4 PO STA (03:30)
[2019-03-04] MEDS ORDERED: CIPROFLOXACIN 250 MG TABLET PO STA (03:30)
[2019-03-04 03:46] VITALS: BP 114/72
== END 2019-03-04 03:46 | disposition home or self-care (01) ==
LOC: ED 00:18
DX: M54.41 Lumbago with sciatica, right side (principal); N30.01 Acute cystitis with hematuria; R93.5 Abnormal findings on diagnostic imaging of other abdominal regions, including retroperitoneum; Z79.82 Long term (current) use of aspirin
CPT/HCPCS: 36415; 74177; 80053; 81001; 83690; 85025; 85651; 87077; 87086; 87181; 96361; 96374; 96375; 99284; A9270; Q9967; 81003

== ENCOUNTER 2020-11-25 14:48 | Outpatient (CLI) | payer MEDICARE, OTHER | END 2020-11-25 14:49 | disposition home or self-care (01) | LOC: LAB.N 14:48 | PROVIDERS: ATTEND Physician Assistant Medical | DX: L65.9 Nonscarring hair loss, unspecified (principal); L68.0 Hirsutism | CPT/HCPCS: 36415; 81599; 82626; 84402; 84403; 84443 ==

== ENCOUNTER 2023-07-03 08:00 | Outpatient (CLI) | payer MEDICARE, OTHER | END 2023-07-03 08:01 | disposition home or self-care (01) | LOC: LAB.N 08:00 | PROVIDERS: ATTEND Specialist | DX: R05.1 Acute cough (principal) ==

== ENCOUNTER 2023-07-03 12:30 | Outpatient (CLI) | payer MEDICARE, OTHER ==
--- NOTE | 2023-07-03 19:06 | XRAY Report ---
PROCEDURE: Chest 2V INDICATIONS: ACUTE COUGH TECHNIQUE: 2 views of the chest were acquired. COMPARISON: 02/13/2017. FINDINGS: Surgical changes and devices: None. Lungs and pleura: No pleural effusions or pneumothorax. Lungs are clear. Mediastinum: Mediastinal contours appear normal. Heart size is normal. Bones and chest wall: No suspicious bony lesions. Overlying soft tissues appear unremarkable. IMPRESSION: No acute cardiopulmonary process. Reviewed by: Maksim Flores MD on 07/03/2023 7:05 PM PST Approved by: Maksim Flores MD on 07/03/2023 7:05 PM PST Station ID: [id number]
== END 2023-07-03 12:45 | disposition home or self-care (01) ==
LOC: DI.N 12:30
PROVIDERS: ATTEND Specialist
DX: R05.1 Acute cough (principal)

== ENCOUNTER 2023-07-05 22:31 | Outpatient (CLI) | payer MEDICARE, OTHER | END 2023-07-05 22:32 | disposition critical access hospital (66) | LOC: EMS 22:31 | DX: R55 Syncope and collapse (principal) | CPT/HCPCS: A0425; A0427 ==

== ENCOUNTER 2023-07-05 22:47 | Emergency (ER) | payer MEDICARE, OTHER ==
[2023-07-05] MEDS ORDERED: SODIUM CHLORIDE 0.9% 1,000 ML IV STA (23:12)
[2023-07-05 23:42] LABS: BASOPHILS % (AUTO) 0.2 %; EOSINOPHILS % (AUTO) 0.2 %; HCT - HEMATOCRIT 36.6 % (37.0-47.0); HGB - HEMOGLOBIN 12.7 g/dL (12.0-16.0); LYMPHOCYTES % (AUTO) 22.2 %; MEAN CORPUSCULAR HEMOGLOBIN 30.2 pg (27.0-31.0); MEAN CORPUSCULAR HGB CONC 34.7 g/dL (32.0-36.0); MEAN CORPUSCULAR VOLUME 86.9 fL (81.0-99.0); MONOCYTES # (AUTO) 0.3 10^3/uL (0.0-1.0); MONOCYTES % (AUTO) 6.1 %; NEUTROPHILS % (AUTO) 71.1 %; PLT - PLATELET COUNT 124 10^3/uL (130-450); RED BLOOD COUNT 4.21 10^6/uL (4.20-5.40); RED CELL DISTRIBUTION WIDTH 12.4 % (12.0-15.0); WHITE BLOOD COUNT 4.3 x10^3/uL (4.8-10.8)
--- NOTE | 2023-07-06 | XRAY Report ---
PROCEDURE: Chest 2V INDICATIONS: dx flu few days ago. cc malaise TECHNIQUE: 2 views of the chest were acquired. COMPARISON: Chest x-ray 07/03/2023. FINDINGS: Surgical changes and devices: None. Lungs and pleura: No pleural effusions or pneumothorax. Mild hazy opacity at the right base medially . Mediastinum: Mediastinal contours appear normal. Heart size is normal. Bones and chest wall: No suspicious bony lesions. Overlying soft tissues appear unremarkable. IMPRESSION: Hazy opacity at the right medial base, concerning for infection. Reviewed by: Eduardo Jorge MD on 07/05/2023 11:59 PM PST Approved by: Eduardo Jorge MD on 07/05/2023 11:59 PM PST Station ID: [id number]
[2023-07-06 00:02] LABS: ALBUMIN 3.6 g/dL (3.2-5.5); ALBUMIN/GLOBULIN RATIO 1.7 (1.0-2.2); BILIRUBIN,TOTAL 0.8 mg/dL (0.2-1.0); CALCIUM 8.5 mg/dL (8.5-10.3); CREATININE 1.1 mg/dL (0.6-1.3); POTASSIUM 3.3 mmol/L (3.5-4.5); TOTAL PROTEIN 5.7 g/dL (6.4-8.9)
[2023-07-06] MEDS ORDERED: ONDANSETRON 4 MG/2 ML VIAL IVP STA (00:02)
[2023-07-06] MEDS ORDERED: ACETAMINOPHEN 325 MG TABLET PO STA (00:02)
--- NOTE | 2023-07-06 00:04 | ED Physician Documentation ---
History of Present Illness - Stated complaint Stated Complaint: GLF - Chief complaint Chief Complaint: General - History obtained from History obtained from: Patient, Family () - Additonal information Additional information: 78yF with pmh htn, hld, gerd, angina, recently diagnosed with flu a few days ago, with symptomatic management only, p/w syncopal episode today when she got up to go to the bathroom, became lightheaded, then crumpled to the floor. patient does not think she hit her head or injured anything. she has had issues with fainting in the past. endorses headaches, malaise, fevers, with tmax 102, nausea and nonproductive cough. denies vomiting, diarrhea, cp, back pain. PD PAST MEDICAL HISTORY - Past Medical History Past Medical History: Yes Cardiovascular: High cholesterol, Angina, Other Respiratory: None GI: GERD SERVICES CLERK: None : None HEENT: None Psych: None Musculoskeletal: None Derm: None - Past Surgical History Past Surgical History: Yes General: Cholecystectomy, Appendectomy, Hiatal hernia repair /SERVICES CLERK: Hysterectomy Cardiovascular: Other - Present Medications Home Medications: Ambulatory Orders Medication Instructions Recorded Confirmed Aspirin [Aspir 81] 81 mg PO DAILY 03/08/13 03/16/17 Metoprolol Succinate [Toprol Xl] 50 mg PO BID 03/08/13 03/16/17 Losartan [Cozaar] 25 mg PO BID 03/16/17 03/16/17 Cholecalciferol [Vitamin D3] 5,000 unit PO BID #60 capsule 03/17/17 Multivitamin [Theragran] 1 tab PO DAILYWM #30 tablet 03/17/17 Niacin 250 mg PO BID #60 capsule.er 03/17/17 Walford-3S/Dha/Epa/Fish Oil [[place]ord-3 1 each PO BID #60 capsule 03/17/17 Fish Oil 1,200 mg Sfgl] Ciprofloxacin HCl [Cipro] 500 mg PO BID #13 tablet 03/04/19 Oxycodone HCl/Acetaminophen 1 - 2 each PO Q6H PRN #14 tablet 03/04/19 [Percocet 5-325 mg Tablet] Ubidecarenone [Coenzyme Q-10] 200 mg PO DAILY 03/04/19 Lactobacillus Acidophilus 1 each PO QDAC #10 tablet 07/06/23 [Probiotic Acidophilus] Ondansetron Odt [Zofran Odt] 4 mg TL Q6H PRN #10 tablet 07/06/23 levoFLOXacin [Levofloxacin] 750 mg PO QDAC #7 tab 07/06/23 - Allergies Allergies/Adverse Reactions: Allergies Allergy/AdvReac Type Severity Reaction Status Date / Time Penicillins Allergy Rash Verified 07/05/23 22:54 Sulfa (Sulfonamide Allergy Rash Verified 07/05/23 22:54 Antibiotics) - Social History Does the pt smoke?: No Smoking Status: Never smoker Does the pt drink ETOH?: Yes Does the pt have substance abuse?: No - Immunizations Immunizations are current?: Yes - POLST Patient has POLST: No POLST Status: Full Code PD ED PE NORMAL - Vitals Vital signs reviewed: Yes - General General: Alert and oriented X 3, No acute distress, Well developed/nourished - HEENT HEENT: Atraumatic, PERRL, EOMI, Moist mucous membranes, Pharynx benign - Neck Neck: Supple, no meningeal sign - Cardiac Cardiac: RRR - Respiratory Respiratory: No respiratory distress, Clear bilaterally - Abdomen Abdomen: Non tender, Non distended - Derm Derm: Normal color, Warm and dry - Extremities Extremities: No deformity - Neuro Neuro: arborist 2-12 intact, No motor deficit, No sensory deficit, Normal speech Eye Opening: Spontaneous Motor: Obeys Commands Verbal: Oriented GCS Score: 15 - Psych Psych: Normal mood, Normal affect Results - Vitals Vitals: Vital Signs - 24 hr 07/05/23 07/06/23 22:54 00:56 Temperature 37.0 C Heart Rate 70 76 Respiratory 16 20 Rate Blood Pressure 159/71 H 134/64 H O2 Saturation 96 92 Oxygen O2 Source Room air - EKG (time done) 0102 EKG releavant findings:: EKG personally interpreted by author of this note. Relevant findings are: Rate: Rate (enter#) (76) Rhythm: NSR [place]: Normal Intervals: Normal VT, RBBB QRS: Normal Ischemia: Normal ST segments - Labs Labs: Laboratory Tests 07/05/23 07/05/23 23:29 23:29 WBC 4.3 L RBC 4.21 Hgb 12.7 Hct 36.6 L MCV 86.9 MCH 30.2 MCHC 34.7 RDW 12.4 Plt Count 124 L MPV 10.0 Neut # (Auto) 3.0 Lymph # (Auto) 1.0 L [place] # (Auto) 0.3 Eos # (Auto) 0.0 Baso # (Auto) 0.0 Absolute Nucleated RBC 0.00 Nucleated RBC % 0.0 Sodium 134 L Potassium 3.3 L Chloride 101 Carbon Dioxide 26 Anion Gap 7.0 BUN 16 Creatinine 1.1 Estimated GFR (MDRD) 48 L Glucose 109 H Calcium 8.5 Total Bilirubin 0.8 AST 31 ALT 24 Alkaline Phosphatase 65 Total Protein 5.7 L Albumin 3.6 Globulin 2.1 Albumin/Globulin Ratio 1.7 Lipase 43 PD Medical Decision Making - ED course ED course: 78yF with active flu symptoms presents s/p syncopal episode tonight when getting to the bathroom. also endorsing multiple flu associated symptoms. treated nausea with IV zofran with improvement. rx sent to pharmacy. IVF administered for suspected dehydration. tylenol provided for malaise, headache. Patient denies hitting head and has no apparent injury from the fall. She has a normal neurologic exam therefore shared decision to hold off on CT head. CBC, abdominal panel ordered. No leukocytosis and normal h an h. she does have na of 134 and k 3.3. Advised pedialyte or adult electrolyte solution. cxr wet read noncontributory, but official read shows opacity at R lung base concerning for infection. Antibiotics ordered and sent to pharmacy. ekg ordered. her cardiac monitoring here in the ED has been benign. suspect her syncope is flu - mediated rather than cardiac in origin. she can f/u with her pcp regarding these symptoms if there is further concern. strict return precautions given. Departure - Departure Disposition: 01 Home, Self Care Clinical Impression: Influenza, Syncope, Nausea, Malaise Condition: Stable Instructions: ED Flu Prescriptions: levoFLOXacin [Levofloxacin] 750 mg PO QDAC #7 tab Lactobacillus Acidophilus [Probiotic Acidophilus] 1 each PO QDAC #10 tablet Ondansetron Odt [Zofran Odt] 4 mg TL Q6H PRN #10 tablet PRN Reason: Nausea / Vomiting Comments: You were seen in the emergency department for fainting episode, likely related to having the flu. You also may have a bacterial pneumonia on top of that, so we're going to have you take antibiotics along with probiotics. You need to stay really well hydrated and rest. Antinausea medicine and antibiotics were sent electronically to [facility] pharmacy. Make sure you drink adult electrolyte solution or pedialyte to stay hydrated. Please follow-up with your primary care provider and return to the emergency department if you have any new or worsening symptoms or other concerns. Forms: PCP List
[2023-07-06] MEDS ORDERED: levoFLOXacin 750 MG/150 ML 750 MG/150 ML BAG IV STA (00:18)
[2023-07-06 02:19] VITALS: BP 96/53; O2SAT 94
== END 2023-07-06 02:19 | disposition home or self-care (01) ==
LOC: EDUNIT# → ED 22:47
DX: J11.1 Influenza due to unidentified influenza virus with other respiratory manifestations (principal); R55 Syncope and collapse
CPT/HCPCS: 36415; 71046; 80053; 83690; 85025; 93005; 96365; 96366; 99283; 99284; A9270